=== PATIENT | female | born 2000 | race Caucasian/White ===

== ENCOUNTER → 2021-06-04 12:18 | Outpatient (CLI) | payer BC, SELFPAY ==
[2021-06-04 13:35] LABS: Absolute Lymphocyte Count 1.66 X10^3/uL (0.83-4.51); Absolute Neutrophil Count 8.2 X10^3/uL (2.0-7.7); Basophil# 0.03 X10^3/uL; Basophil% 0.3 % (0-1); Eosinophil# 0.06 X10^3/uL; Eosinophils% 0.6 % (0-5); Hematocrit 35.6 % (37-47); Hemoglobin 12.1 g/dL (12.0-15.0); Lymphocyte # 1.66 X10^3/ul (0.83-4.51); Lymphocyte % 15.6 % (19-41); Mean Corpuscular Hgb 30.1 pg (27.0-32.0); Mean Corpuscular Volume 88.6 fL (81-99); Monocyte# 0.58 X10^3/uL; Monocyte% 5.5 % (0-10); NRBC Flagged by Analyzer 0 % (0-5); Neutrophil # 8.22 X10^3/uL (2.7-7.7); Neutrophil % 77.4 % (47-70); Platelet Count 191 K/mm3 (150-450); RBC Distribution Width CV 12.3 % (11.6-14.6); RBC Distribution Width SD 40.1 fl (35.1-43.9); Red Blood Count 4.02 M/mm3 (4.2-5.4); White Blood Count 10.6 K/mm3 (4.4-11.0)
[2021-06-04 13:41] LABS: Color, Urine Straw (Yellow); Glucose, Dipstick Normal (Normal); Ketone-Dipstick Negative (Negative); Leukocyte Esterase-Dipstick Negative /ul (Negative); Nitrite-Dipstick Negative (Negative); Occult Blood-Urine Negative /ul (Negative); Protein-Dipstick Negative (Negative); Urine Bilirubin Dipstick Negative (Negative); Urine Clarity Clear (Clear); Urine Urobilinogen Normal (Normal)
[2021-06-04 13:54] LABS: Amphetamine Urine VISTA NEGATIVE (<1000 ng/mL); Barbiturate Urine VISTA NEGATIVE (< 200 ng/mL); Benzodiazepine Urine VISTA NEGATIVE (< 200 ng/mL); Cocaine Urine VISTA NEGATIVE (< 300 ng/mL); Ecstacy Urine VISTA NEGATIVE (< 500 ng/mL); Methadone Urine VISTA NEGATIVE (< 300 ng/mL); PCP Urine VISTA NEGATIVE (< 25 ng/mL); THC Urine VISTA NEGATIVE (< 50 ng/mL); Vista UDS pH Range 7
[2021-06-04 13:55] LABS: Thyroid Stim Hormone (TSH) 2.64 uIU/mL (0.358-3.74)
[2021-06-04 14:28] LABS: HIV - WCH Non-Reactive (Nonreactive); Hepatitis B Surface Antigen Non-Reactive (Nonreactive); Hepatitis C Antibody Non-Reactive (Nonreactive); Rubella IgG Reactive (Nonreactive); Syphilis Antibodies Non-reactive
[2021-06-07 03:07] LABS: Chlamydia By Nucleic Acid AMP Negative (Negative)
[2021-06-07 13:05] LABS: Gonococcus By Nucleic Acid AMP Negative (Negative)
== END ==
PROVIDERS: Visit Provider Obstetrics & Gynecology
DX: Z34.82 Encounter for supervision of other normal pregnancy, second trimester (principal); Z11.3 Encounter for screening for infections with a predominantly sexual mode of transmission
CPT/HCPCS: 36415; 80307; 81002; 84443; 85025; 86703; 86762; 86780; 86803; 87086; 87340; 87491; 87591

== ENCOUNTER → 2021-07-01 15:04 | Outpatient (CLI) | payer BC, SELFPAY ==
[2021-07-01 15:35] LABS: Hematocrit 38.1 % (37-47); Hemoglobin 12.6 g/dL (12.0-15.0); Mean Corp Hgb Conc 33.1 g/dL (32-36); Mean Corpuscular Hgb 29.9 pg (27.0-32.0); Mean Corpuscular Volume 90.3 fL (81-99); Mean Platelet Vol. 9.7 fl (6.2-12.0); Platelet Count 252 K/mm3 (150-450); RBC Distribution Width CV 12.6 % (11.6-14.6); RBC Distribution Width SD 41.1 fl (35.1-43.9); Red Blood Count 4.22 M/mm3 (4.2-5.4); White Blood Count 10.3 K/mm3 (4.4-11.0)
[2021-07-01 16:15] LABS: Glucose Challenge Gest 1H 50g 112 mg/dL (70-140)
== END ==
PROVIDERS: Visit Provider Obstetrics & Gynecology
DX: Z34.83 Encounter for supervision of other normal pregnancy, third trimester (principal)
CPT/HCPCS: 36415; 82950; 85027

== ENCOUNTER → 2021-08-26 12:14 | Outpatient (CLI) | payer BC, MEDICAID, SELFPAY | PROVIDERS: Visit Provider Obstetrics & Gynecology | DX: Z36.85 Encounter for antenatal screening for Streptococcus B (principal) | CPT/HCPCS: 87081 ==

== ENCOUNTER 2021-08-29 11:45 | Outpatient (CLI) | payer BC, MEDICAID, SELFPAY ==
[2021-08-29 12:08] VITALS: BMI 33.4
[2021-08-29 12:13] VITALS: BP 130/83; PULSE 67
--- NOTE | 2021-08-30 05:35 | OB.TRI.NOTE ---
HPI - General HPI Narrative ROXANA THOMAS, is a 20 F 1 para 0 who presents to labor and delivery with some contractions. Concerned that she may be in labor. She is 36 weeks 4 days gestation. Maternal Data Information Final YENIFER: 08/23/21 Gestational age: 36 weeks 4 days PFSH PFSH Home Medications 1 tab PO/SL DAILY 08/29/21 [History Last Taken Unknown] Allergy/AdvReac Type Severity Reaction Status Date / Time latex Allergy Rash Verified 08/29/21 12:09 NST FHR Rate Baby A NST Reactive:: Yes FHR Category:: Category I Assessment & Plan (1) labor in third trimester: PLAN: Transient contractions. No change of cervix after monitoring. Rupture of membranes test negative. Discharged home with routine labor instructions. Reactive nonstress test.
== END 2021-08-29 12:48 | disposition home or self-care (01) ==
LOC: WPOUT 11:57 → WP 11:58
PROVIDERS: Visit Provider Obstetrics & Gynecology
DX: O60.03 Preterm labor without delivery, third trimester (principal); Z3A.36 36 weeks gestation of pregnancy
CPT/HCPCS: 59025; 59050; 99218; G0378

== ENCOUNTER 2021-09-12 09:10 | Outpatient (CLI) | payer BC, MEDICAID, SELFPAY ==
[2021-09-12 09:25] VITALS: BP 127/82; PULSE 84
[2021-09-12 09:26] VITALS: TEMP 36.3
[2021-09-12 09:42] VITALS: BMI 33.0
--- NOTE | 2021-09-12 10:40 | PN_ITS ---
Progress Note 20-year-old G1 38 weeks presenting with contractions. Cervical exam 1 cm on admission to triage and on repeat exam. Patient comfortable in room. States that contractions have been on and off, every time she starts to time them they resolved. Labor precautions given. Discharge home. NST reactive heart rate 125/moderate variability/+accel/no decel. [place] irritable.
== END 2021-09-12 10:35 | disposition home or self-care (01) ==
LOC: WPOUT 09:15 → WP 09:15
PROVIDERS: Referring Provider Student in an Organized Health Care Education/Training Program; Visit Provider Student in an Organized Health Care Education/Training Program
DX: O47.1 False labor at or after 37 completed weeks of gestation (principal); Z3A.38 38 weeks gestation of pregnancy
CPT/HCPCS: 59025; 59050; 99218; G0378

== ENCOUNTER 2021-09-15 07:05 | Outpatient (CLI) | payer BC, MEDICAID, SELFPAY ==
[2021-09-15 07:26] VITALS: BP 126/85; PULSE 76
[2021-09-15 07:27] VITALS: TEMP 36.4; O2SAT 99
[2021-09-15 07:28] VITALS: PULSE 71; O2SAT 98
[2021-09-15 07:42] VITALS: BMI 33.0
[2021-09-15 08:52] LABS: Bacteria 0 SEEN /hpf (None Seen); Mucous, Urine 0 SEEN /hpf (<or=2+); Red Blood Cells-Urine 0 SEEN /hpf (0-5); Squamous Epithelial Cells - UA 0 SEEN /hpf (5-10); White Blood Cells 0 SEEN /hpf (0-5)
[2021-09-15 08:58] LABS: Color, Urine Yellow (Yellow); Glucose, Dipstick Normal (Normal); Ketone-Dipstick Negative (Negative); Leukocyte Esterase-Dipstick Negative /ul (Negative); Nitrite-Dipstick Negative (Negative); Occult Blood-Urine Negative /ul (Negative); Protein-Dipstick Negative (Negative); Specific Gravity, Urine 1.015 (1.002-1.030); Urine Bilirubin Dipstick Negative (Negative); Urine Clarity Clear (Clear); Urine Urobilinogen Normal (Normal)
--- NOTE | 2021-09-25 10:49 | PCM.PN.OB ---
Subjective Subjective Term IUP presents with contractions. Concerned that she may be in labor. Objective Data Objective Data Vital Signs: Vital Signs Temp Pulse BP Pulse Ox 97.6 F L 71 126/85 H 98 09/15/21 07:27 09/15/21 07:28 09/15/21 07:26 09/15/21 07:28 Weight: 204 lb 9.6 oz Body Mass Index (BMI) 33.0 Lab / Micro Data Micro: Microbiology 09/15/21 08:43 Urine, Clean Catch Urine Culture - Final Culture exhibits no growth. NST FHR Rate Baby A NST Reactive:: Yes FHR Category:: Category I Uterine Activity:: Contractions noted on monitor but palpate mild. Assessment & Plan (1) False labor, antepartum: PLAN: Term intrauterine with false labor. No change in cervix after monitoring for several hours. Contractions are regular. Reactive nonstress. Will discharge to home with routine labor instructions.
== END 2021-09-15 09:05 | disposition home or self-care (01) ==
LOC: WPOUT 07:16 → WP 07:16
PROVIDERS: Obstetrics & Gynecology; Referring Provider Obstetrics & Gynecology; Visit Provider Obstetrics & Gynecology
DX: O47.9 False labor, unspecified (principal); Z3A.00 Weeks of gestation of pregnancy not specified
CPT/HCPCS: 59025; 59050; 81001; 87086; 99218; G0378

== ENCOUNTER 2021-09-16 02:10 | Inpatient (IN) | payer BC, MEDICAID, SELFPAY ==
[2021-09-15 20:42] VITALS: BMI 33.0
[2021-09-15 21:04] VITALS: BP 130/84; PULSE 65
[2021-09-15] MEDS: morphine 10 MG/ML Syringe IM (21:47)
[2021-09-16] VITALS (29 sets, daily range): BP systolic 104–146; BP diastolic 55–87; PULSE 56–94; RESP 16–18; TEMP 36.1–36.6; O2SAT 96–99
[2021-09-16] MEDS: Lactated Ringers 1,000 ML 200 ML IV ×2 (02:30→07:16)
[2021-09-16 02:47] LABS: Absolute Neutrophil Count 3.4 X10^3/uL (2.0-7.7); Basophil# 0.03 X10^3/uL; Basophil% 0.5 % (0-1); Eosinophil# 0.03 X10^3/uL; Eosinophils% 0.5 % (0-5); Hematocrit 36.9 % (37-47); Hemoglobin 12.1 g/dL (12.0-15.0); Lymphocyte % 31.7 % (19-41); Mean Corp Hgb Conc 32.8 g/dL (32-36); Mean Corpuscular Hgb 28.3 pg (27.0-32.0); Mean Corpuscular Volume 86.2 fL (81-99); Mean Platelet Vol. 12.6 fl (6.2-12.0); Monocyte% 7.1 % (0-10); NRBC Flagged by Analyzer 0 % (0-5); Neutrophil # 3.38 X10^3/uL (2.7-7.7); Neutrophil % 59.7 % (47-70); POSITIVE COUNT YES; Platelet Count 76 K/mm3 (150-450); RBC Distribution Width CV 13.1 % (11.6-14.6); RBC Distribution Width SD 39.9 fl (35.1-43.9); Red Blood Count 4.28 M/mm3 (4.2-5.4); White Blood Count 5.7 K/mm3 (4.4-11.0)
[2021-09-16 02:48] LABS: Differential Indicated SCAN CRITERIA MET
[2021-09-16 03:03] LABS: Differential Comment SCANNED
[2021-09-16 03:04] LABS: Platelet Estimate SLT DEC (ADEQ); Platelet Morphology CLUMPED
[2021-09-16 05:51] LABS: ROM Internal Control Test YES-OK TO RESULT pt. (Internal QC)
[2021-09-16 05:52] LABS: ROM Patient Test POSITIVE (Negative)
[2021-09-16] MEDS: Lactated Ringers 500 ML 999 ML IV (06:25)
[2021-09-16 06:45] LABS: Platelet Count 177 K/mm3 (150-450)
--- NOTE | 2021-09-16 06:56 | PCM.HP.BLA ---
History and Physical Date of Admission: 09/16/21 Chief complaint: Leakage of fluid History present illness: 20-year-old G1, P0 at 39 weeks and 1 day with YENIFER: 09/22/2021 by 11-week ultrasound. Patient with leakage of clear fluid. Denies headache, visual changes, chest pain, shortness of breath, nausea vomiting, right upper quadrant pain. Patient states good movement. Obstetric history: G1: Current Past medical history: None Medications: vitamin Past surgical history: None Allergies: Latex Social history: Half pack per day smoker, denies alcohol or drug use Family history: Denies history DVT or PE Review of systems: Besides above pertinent positives a full review of systems was performed and found to be negative Physical exam: Vitals: Blood pressure 113/60 pulse 60 General: Normal-appearing no acute distress HEENT: Normocephalic atraumatic no cervical of adenopathy Cardiac/respiratory: No use accessory muscles nonlabored breathing Abdomen: Soft, nontender, nondistended Extremities: No peripheral edema normal peripheral pulses Psych: Normal affect normal demeanor nonpressured speech Labs: White blood cell count 5.7 hemoglobin 12.1 hematocrit 36.9% platelets 177. ROM positive Assessment plan: 20-year-old G1, P0 at 39 weeks and 1 day with spontaneous rupture membranes Admit labor and delivery CEFM GBS negative Routine orders Anesthesia to see
[2021-09-16] MEDS: fentaNYL-bupivacaine (epidural) 100 ML BAG EPIDURAL (07:32)
[2021-09-16] MEDS: Oxytocin 30 units/NS 500 ml 30 UNITS/500 ML IV.SOLN IV (09:20)
[2021-09-16] MEDS: Oxytocin 30 units/NS 500 ml 30 UNITS/500 ML IV.SOLN 334 UNITS IV (11:25)
--- NOTE | 2021-09-16 11:38 | EX.PCM.OBRPT ---
Maternal Data Information Final YENIFER: 09/22/21 Final YENIFER Source: US <20 weeks Vaginal Delivery Maternal Presentation Maternal Presentation: Active Labor Operative Information Date of Procedure: 09/16/21 Pre-Operative Diagnosis: IUP Post-Operative Diagnosis: IUP Surgery / Procedure Performed: Spontaneous Vaginal Delivery Type of Anesthesia: Epidural Estimated Blood Loss: 250 cc Fluids Replaced: Crystalloid Findings Description of Procedure: Spontaneous vaginal delivery of a viable male infant with Apgars of 9/9 from an occiput anterior presentation with clear amniotic fluid and normal three-vessel placenta. Cord around the neck x1 tight. No episiotomy. First-degree midline laceration repaired with 3-0 Rapide suture under epidural. Sponges okay. Delivery physician: Emmett Galicia MD. Presentation: Vertex Amniotic Membrane Rupture Type: Spontaneous Amniotic Fluid Description: Clear Placental Delivery Description: Spontaneous Placenta Disposition: [facility] Cord Vessel Description: 3 Vessels Cord Entanglement: Around neck x 1, tight Infant A Gender: Male (1 minute): 9 (5 minute): 9 Post Vaginal Delivery Medications Given After Delivery: IV Pitocin Episiotomy Description: None Laceration: Midline and 1st degree Complication Complications: None
--- NOTE | 2021-09-16 11:41 | PCM.DC ---
Discharge Instructions Diet Discharge Diet: No restrictions Activity Discharge Activity: May Drive (In 1 to 2 days if not taking narcotic pain medication), May Shower and May Take a Tub Bath May resume sexual activity in: 4-6 weeks Additional Activity Instructions:: Nothing in the vagina for 4-6 weeks. You may return to work/school in 6 weeks. Dressing / Incision Call your doctor if you observe: Fever of 101 or Higher, Inability to urinate, Inability to have a bowel movement and Using more than 1 pad per hour Follow Up Care Please Follow Up With: Emmett Galicia MD When: Call [phone] to make an appointment with your doctor in 6 weeks. Test Results: Test results from this visit will be discussed in further detail at your follow-up appointment, if applicable. Discharge Plan Admission Admit Date/Time: 09/16/21 02:10 Primary Reason for Your Visit: Vaginal Delivery Attending Provider: Emmett Galicia Discharge Orders/Prescriptions Prescriptions: New ibuprofen 600 mg Tablet 600 mg PO Q8H PRN PRN (Reason: Pain Score 1-3) Qty: 30 RF: 0 Continued 1 tab PO/SL DAILY RF: 0 Disposition Disposition (needs filled in before D/C Order can be placed): Home, Self Care
[2021-09-16] MEDS: Acetaminophen 500 MG Tablet 1000 MG PO (16:54)
[2021-09-16] MEDS: Ibuprofen 600 MG Tablet PO (21:51)
[2021-09-16] MEDS: Dibucaine 30 GM Tube 1 APPLIC TOPICAL (21:54)
--- NOTE | 2021-09-16 23:33 | NURSING ---
RN went in to do bedside report with oncoming nurse and mother was lying on her side in bed sleeping with baby next to her and infants face against her in the blanket. Mom awakened and told she cannot sleep with baby in the bed and went over SIDS. infant placed in crib next to mom's bed.
[2021-09-17] VITALS (8 sets, daily range): BP systolic 111–125; BP diastolic 65–77; PULSE 58–71; RESP 12–18; TEMP 36.2–36.6; O2SAT 98–99
--- NOTE | 2021-09-17 | NURSING ---
Baby was found sleeping in bed with blanket over face and mother sleeping as well. This RN told mother that it is not safe for baby to be sleeping with baby and that the blanket was covering his face. Mother told this nurse that the blanket was off his face. Educated mother that she cannot cosleep with baby. This nurse swaddled baby and put in crib next to mother.
--- NOTE | 2021-09-17 06:16 | NURSING ---
Baby found sleeping with face against mother who was also sleeping. Reinforced the importance of safe sleep. This nurse took baby and put in crib beside mothers bed.
--- NOTE | 2021-09-17 07:34 | NURSING ---
0730- in room for report. nurse noted infant and mother sleeping together in bed. pt on right side with arms wrapped around infant held tightly against chest. Patient sleeping soundly and difficult to wake. placed in crib by nurse and both parents educated on safe sleep. Instructed not to sleep with in the bed, should be in crib on back and by himself. Educated that a swaddle will help with sleep.
--- NOTE | 2021-09-17 09:08 | PCM.PN.OB ---
Subjective Subjective No issues overnight. She is oob, voiding without difficulty. Denies heavy lochia. She is sore, but painfulness if manageable. Requests d/c home today. Objective Data Objective Data Vital Signs: Vital Signs Temp Pulse Resp BP Pulse Ox 97.1 F L 60 12 125/77 H 98 09/17/21 08:15 09/17/21 08:15 09/17/21 08:15 09/17/21 08:15 09/17/21 08:15 Oxygen Delivery Method Room Air Weight: 92.7 kg Body Mass Index (BMI) 33.0 Intake & Output: Intake and Output for Last 24 Hours 09/15/21 09/16/21 09/17/21 23:59 23:59 23:59 Intake Total 2693.17 / 2693.17 Balance 2693.17 / 2693.17 Lab / Micro Data Result Diagrams: 09/16/21 06:28 Micro: Microbiology 09/16/21 02:30 Nasal Secretion SARS-CoV-2 Antigen (Rapid) - Final Physical Exam Const alert, oriented x3 and no apparent distress Resp normal respiratory effort and normal air movement Cardio regular rate, regular rhythm, S1 normal heart sound and S2 normal heart sound GI soft to palpation, non-tender and non-distended Uterus Palpation: uterus fundus firm and other OB fundus nontender, lochia scant Extremity no calf tenderness and no pedal edema Neuro oriented x3 Assessment & Plan (1) (spontaneous vaginal delivery): PLAN: Rh positive Breast and bottle feeding Routine care Will d/c home this afternoon if infant discharged
--- NOTE | 2021-09-17 09:12 | PCM.DC ---
Discharge Instructions Diet Discharge Diet: No restrictions Activity Discharge Activity: Return to Normal Activity and May Shower Lifting Restrictions: 20-25 lb Additional Activity Instructions:: Nothing in the vagina for 4-6 weeks. You may return to work/school in 6 weeks. Dressing / Incision Call your doctor if you observe: Fever of 101 or Higher, Inability to urinate, Inability to have a bowel movement and Using more than 1 pad per hour Follow Up Care Please Follow Up With: Emmett Galicia MD Test Results: Test results from this visit will be discussed in further detail at your follow-up appointment, if applicable. Discharge Plan Admission Admit Date/Time: 09/16/21 02:10 Primary Reason for Your Visit: Vaginal Delivery Attending Provider: Emmett Galicia Discharge Orders/Prescriptions Prescriptions: New ibuprofen 600 mg Tablet 600 mg PO Q8H PRN PRN (Reason: Pain Score 1-3) Qty: 30 RF: 0 Continued 1 tab PO/SL DAILY RF: 0 Disposition Disposition (needs filled in before D/C Order can be placed): Home, Self Care
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
--- NOTE | 2021-09-17 16:30 | CASEMGMT ---
Social Work Labor and Delivery Unit Updated wine blender and nursing regarding the mother of baby (MOB) endorsement of opiate use during . Film Cutter determined minimum length of stay for baby will be 5 days for withdrawal monitoring. Conferred with nursing management regarding the MOB second visitor being the father of baby (FOB) father Kolby. During initial assessment both the MOB and FOB reported that Kolby was only given the second visiting band because Kolby threw a fit to be that visitor. MOB had voiced being upset regarding this, as MOB's mother drove 4 hours away to be present at the hospital and the support to the MOB. In light of Kolby not consistently being present to help the MOB and FOB, as well as voiced concerns that this individual also uses substances, this greeting card writer advocated for a change in the second visitor to help support the parents and allowing the parents to get some time to rest. This would also allow for the MOB to have a support person that is there specifically for her. It was agreed that the MOB mother could become a second support person in light of the extenuating social circumstances. There will be no other changes in second visitor should the MOB's mother have to return home. This greeting card writer along with the wine blender Dr. Rowley presented to the MOB room. This greeting card writer reviewed the exception that would be made for the second visitor change. MOB expressed much relief and appreciation. Both MOB and FOB expressed understanding that the FOB's father can no longer visit. FOB reports that this would be fine as long as his father can come to the front door of the hospital to see the FOB if needed. Baby's length of stay was addressed with the parents, reasoning behind need for extended monitoring. Allowed parents time to ask questions. Note, during conversation the FOB stumbled and fell backwards onto the couch almost as if was about to pass out. FOB also started crying outwardly again using multiple Kleenexes for the tears. MOB got up out of the bed holding the baby and sat down beside the FOB and started rubbing the FOB's back. FOB acknowledged that he was having an anxiety attack. MOB reports that what was experiencing was not even a bad one. This greeting card writer encouraged the father of baby to practice deep breathing when in a calm state, so that it is more comfortable when FOB starts to become anxious. Encouraged hydration such as water. Explored whether it may be helpful for the FOB to go home and get some good solid sleep and nutrition, in order to come back more rested to help support the MOB and the baby. FOB reported belief that going home and sleeping would be helpful, but also did not want to leave the MOB and the baby. MOB voiced that if her mom was around, the MOB did not mind and wanted the FOB to feel better. Let the parents know that this greeting card writer would be following back up with them next week, working on some resources for home-going. Much emotional support provided to the parents this date, allowing time to reflect, ask questions, and also validation for being honest about stressors. Plan: Social work to follow and assist as needed. Plan to call [facility] children services on 09/20/2021. -MECHE Cooper, STRIPPER CUTTER MACHINE *This note was generated with SkySQLation software. It may contain incorrect words, spelling, and punctuation that were not noted in review of the chart prior to signing*
--- NOTE | 2021-09-18 01:26 | NURSING ---
Pt triggered PHQ9, Social work must be notfied due to her response. ORLANDO Alcazar already saw patient in the last 12 hours and aware of the situation. Inge is following up with patient. This RN, charge nurse, and melter supervisor oxygen furnace aware.
[2021-09-18 02:10] VITALS: BP 125/84; PULSE 66; RESP 18
[2021-09-18 08:22] VITALS: BP 115/74; PULSE 60; RESP 16; TEMP 36.4; O2SAT 98
--- NOTE | 2021-09-18 09:19 | PCM.PN.OB ---
Subjective Subjective Reports her mood is doing well this morning. She is formula feeding. Reports having tingling in hands and feet and feelings of discomfort while . She has not had a cigarette during her hospital stay and plans to avoid when she returns home. Denies heavy lochia or abdominal pain. Objective Data Objective Data Vital Signs: Vital Signs Temp Pulse Resp BP Pulse Ox 97.6 F L 60 16 115/74 98 09/18/21 08:22 09/18/21 08:22 09/18/21 08:22 09/18/21 08:22 09/18/21 08:22 Oxygen Delivery Method Room Air Weight: 92.7 kg Body Mass Index (BMI) 33.0 Intake & Output: Intake and Output for Last 24 Hours 09/16/21 09/17/21 09/18/21 23:59 23:59 23:59 Intake Total 2693.17 / 2693.17 Balance 2693.17 / 2693.17 Lab / Micro Data Result Diagrams: 09/16/21 06:28 Micro: Microbiology 09/16/21 02:30 Nasal Secretion SARS-CoV-2 Antigen (Rapid) - Final Physical Exam Const alert, oriented x3 and no apparent distress Resp normal respiratory effort and normal air movement Cardio regular rate, regular rhythm, S1 normal heart sound and S2 normal heart sound Uterus Palpation: uterus fundus firm and other OB fundus nontender Extremity no calf tenderness Neuro oriented x3 Assessment & Plan (1) (spontaneous vaginal delivery): PLAN: PPD#2 s/p Formula feeding Case management consultation completed - to stay at this time hx tobacco use, offered nicotine patch for discharge - pt declines d/c home
[2021-09-18] MEDS: Ibuprofen 600 MG Tablet PO (10:56)
--- NOTE | 2021-09-18 12:04 | CM.ED ---
ORALNDO Note ORLANDO spoke to Lead SW/WP College Advisor Kathy De. ORLANDO completed the [place] with patient on 09/17/21 and addressed patient's mental health concerns with her at the assessment. Patient has no plan regarding SI, no past suicide attempt and admitted the thoughts were fleeting (of note patient has experienced childhood trauma). ORLANDO De will follow up with patient and patient will have discharge MH referral. ORLANDO updated Abbie, railroad wheels and axle inspector WP. Plan: PHQ scores have been addressed by Kathy De and she will follow up. Maral COFFMAN
[2021-09-18 15:00] VITALS: BP 117/80; PULSE 62; RESP 16; TEMP 36.2; O2SAT 98
--- NOTE | 2021-09-20 10:04 | CASEMGMT ---
Social Work Labor and Delivery Unit Medical records of the mother of baby (MOB) and reviewed. MOB has been discharged as a patient but remains on hotel status while the 's hospitalization continues. Called [facility] services at [phone] and spoke with Terese in the screening department. 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 Informed Terese that the hospital did administer morphine to the MOB during labor, however MOB also endorsed use of opiates during and could not give this proposal manager writer a date of last use, so uncertain as to the origin of the positive opiate screen. Reported additional concerns regarding poor care, maternal mental health, paternal mental health, and paternal substance use. Concerns for limited support system for this family. Brief maternal and infant histories provided. Per conversation with Terese, this referral will be screened in with for investigation any worker will be out today or early tomorrow morning. Terese will ask the worker call this proposal manager writer prior to coming to the hospital. Plan: We will continue to follow and assist this family for appropriate discharge planning of the . Plan to make a help me grow referral, as well as mental health follow-up for both parents. Refer to prior social work documentation for additional details. -MECHE Cooper, FIELD SERVICE ENGINEER *This note was generated with Media Battlesation software. It may contain incorrect words, spelling, and punctuation that were not noted in review of the chart prior to signing*
--- NOTE | 2021-09-22 17:02 | CASEMGMT ---
Social Work Labor and Delivery Unit Patient/mother of baby (MOB) was previously discharged as a patient, but has been staying at the hospital on hotel status, caring for the baby during babies extended stay for FABRICE monitoring. Refer to 's delivery record for further details, which is directly attached to this visit history. To note, [facility] services worker that is assigned to this family is Rosa Ramsey ([phone]). MOB, father baby, and infant are ultimately going to reside in [facility] with the . This underwriter solicitation director was able to obtain mental health follow-up information for that catchment area, and provided this in written form to the MOB. Information provided for [facility] services in [facility]. MOB did sign a release of information to [facility] this date. Release sent to medical records department. Homemaker referral completed via the [facility] secure web-based referral system. No other services requested or indicated, other than monitoring for 's meconium drug screen. -MECHE Cooper, HISTOTECHNOLOGIST SUPERVISOR *This note was generated with Firmex dictation software. It may contain incorrect words, spelling, and punctuation that were not noted in review of the chart prior to signing*
== END 2021-09-18 18:15 | disposition home or self-care (01) | DRG 807 ==
LOC: WPOUT 02:14 → WP 02:14
PROVIDERS: Admitting Provider Obstetrics & Gynecology; Visit Provider Obstetrics & Gynecology
DX: O70.0 First degree perineal laceration during delivery (principal); Z37.0 Single live birth; O69.1XX0 Labor and delivery complicated by cord around neck, with compression, not applicable or unspecified; F17.210 Nicotine dependence, cigarettes, uncomplicated; O99.334 Smoking (tobacco) complicating childbirth; Z3A.39 39 weeks gestation of pregnancy
CPT/HCPCS: 59025; 59050; 84112; 85025; 85049; 86850; 86900; 86901; 87426; 99218; J7120; 90686; G0378